=== PATIENT | female | born 1995 | race Two or more races ===

== ENCOUNTER 2023-11-01 20:50 | Emergency (ER) | payer SELFPAY ==
[~2023-11-01] VITALS: Ht 167.6 cm; Wt 90.0 kg
[2023-11-01] MEDS ORDERED: CALCIUM CHLOR(10%) 100MG/ML 10ML SYRINGE IV ONE (20:51)
[2023-11-01 21:11] VITALS: PULSE 0; RESP 0; O2SAT 92
[2023-11-01] MEDS ORDERED: EPINEPHrine HCL 250 ML IV ONE (21:22)
[2023-11-01] MEDS ORDERED: NOREPINEPHRINE 8 MG/250ML KIT 250 ML IV ONE (21:39)
[2023-11-01] MEDS ORDERED: SODIUM BICARB 8.4% 50Meq/50ml SYR Vial IV ONE (21:50)
[2023-11-01 22:02] VITALS: BP 111/45; PULSE 145; RESP 20; TEMP 94.7; O2SAT 82
[2023-11-01 22:15] LABS: Hematocrit 25.8 % (36.0-46.0); Hemoglobin 7.8 g/dL (12.2-16.2)
[2023-11-01 22:16] LABS: Mean Corpuscular Hemoglobin 22.9 pg (28.0-32.0); Mean Corpuscular Hgb Conc. 30.1 g/dL (32.0-36.0); Platelet Count (auto) 319 10^3/uL (140-450); Red Cell Distribution Width 17.1 % (11.8-14.3); White Blood Cell 23.1 10^3/uL (4.4-10.8)
[2023-11-01 22:20] LABS: Basophils % (manual) 0 (0.0-2.0); Blast Cells 0; Promyelocytes % 0; Reactive Lymphocytes 0
[2023-11-01 22:34] LABS: INR 1.31 (0.9-1.15); Partial Thromboplastin Time 43.8 SEC (24.5-34.5); Prothrombin Time 13.6 sec (9.3-11.8)
[2023-11-01 22:40] LABS: Alanine Aminotransferase 554 U/L (7-40); Albumin 2.8 g/dL (3.2-4.8); Alkaline Phosphatase 115 U/L (46-116); Anion Gap 19 (5-15); Aspartate Aminotransferase 685 U/L (13-40); BUN/Creatinine Ratio 14.2 (10.0-20.0); Blood Urea Nitrogen 17 mg/dL (9-23); Calcium 7.1 mg/dL (8.7-10.4); Carbon Dioxide 17 mmol/L (20-30); Chloride 106 mmol/L (98-107); Glucose 363 mg/dL (74-106); Potassium 3.1 mmol/L (3.5-5.1); Sodium 142 mmol/L (136-145)
[2023-11-01 22:41] LABS: Bilirubin, Total 0.2 mg/dL (0.2-1.0); Total Protein 4.5 g/dL (5.7-8.2)
[2023-11-01 22:55] LABS: Band Neutrophils % (manual) 13; Eosinophils % (manual) 1 (0-7); Lymphocytes % (manual) 49 (10.0-50.0); Metamyelocytes % 4; Monocytes % (manual) 8 (0-12); Myelocytes % 1; Platelet Estimate Adequate
[2023-11-01 22:56] LABS: Hypochromia Moderate
== END 2023-11-01 22:46 | disposition short-term general hospital (02) ==
LOC: ER 20:50
DX: S09.8XXA Other specified injuries of head, initial encounter (principal); I46.9 Cardiac arrest, cause unspecified; R10.2 Pelvic and perineal pain; Z79.899 Other long term (current) drug therapy; V89.2XXA Person injured in unspecified motor-vehicle accident, traffic, initial encounter; Y93.I9 Activity, other involving external motion; Y92.488 Other paved roadways as the place of occurrence of the external cause; Y99.8 Other external cause status
CPT/HCPCS: 31500; 36415; 36430; 36556; 36600; 71045; 80053; 82805; 84702; 85007; 85027; 85610; 85730; 86850; 86900; 86901; 86920; 92950; 93005; 99291; J0171; P9016